=== PATIENT | female | born 2000 | race Caucasian/White ===

== ENCOUNTER 2018-02-21 13:23 | Emergency (ER) | payer MEDICAID ==
[2018-02-21 13:29] VITALS: BP 114/69; PULSE 74; RESP 18; TEMP 97.7; O2SAT 100
--- NOTE | 2018-02-21 13:46 | ED PDOC ---
Lower Extremity Pain/Injury Chief Complaint (Nursing): Lower Extremity Problem/Injury Chief Complaint (Provider): Right big toe ingrown toenail History Per: Patient History/Exam Limitations: no limitations Onset/Duration Of Symptoms: Days (x1 week) Current Symptoms Are (Timing): Still Present Additional Complaint(s): Angelica Sosa is a 18 year old female, with no significant past medical history, who presents to the emergency department complaining of an ingrown toenail to right big toe onset for x1 week. Patient states she made an appointment at the podiatry clinic but needs a referral and was advised to come to the ED. She denies any other medical complaints. PMD: None provided. Past Medical History Reviewed: Historical Data, Nursing Documentation, Vital Signs Vital Signs: Last Vital Signs Temp 97.7 F 02/21/18 13:26 Pulse 74 02/21/18 13:26 Resp 18 02/21/18 13:26 BP 114/69 02/21/18 13:26 Pulse Ox 100 02/21/18 13:26 - Medical History PMH: No Chronic Diseases - Surgical History Surgical History: No Surg Hx - Family History Family History: States: No Known Family Hx - Allergies Allergies/Adverse Reactions: Allergies Allergy/AdvReac Type Severity Reaction Status Date / Time No Known Allergies Allergy Verified 02/21/18 13:26 Review of Systems ROS Statement: Except As Marked, All Systems Reviewed And Found Negative Musculoskeletal: Positive for: Foot Pain (right big toe ingrown toenail) Physical Exam - Reviewed Nursing Documentation Reviewed: Yes Vital Signs Reviewed: Yes - Physical Exam Appears: Positive for: Well, Non-toxic, No Acute Distress Head Exam: Positive for: ATRAUMATIC, NORMOCEPHALIC Skin: Positive for: Normal Color, Warm, Dry Eye Exam: Positive for: Normal appearance Extremity: Positive for: Normal ROM (lower extremities), Other (right foot, right big toe lateral edge appears mildly ingrown to nailfold. No inflammation, drainage, discharge or infection.). Negative for: Swelling (right big toe) Neurologic/Psych: Positive for: Alert, Oriented - ECG O2 Sat by Pulse Oximetry: 100 (RA) Pulse Ox Interpretation: Normal Medical Decision Making Medical Decision Making: Initial Impression: Right big toe ingrown toenail. Initial Plan:Affected toenail edge removed at the nail fold without use of anestesia; pt tolerated procedure well and experienced not pain durign or atfter the procedure ~ Scribe Attestation: Documented by Hector Puckett, acting as a scribe for Sundar Cleary PA-C. Provider Scribe Attestation: All medical record entries made by the Scribe were at my direction and personally dictated by me. I have reviewed the chart and agree that the record accurately reflects my personal performance of the history, physical exam, medical decision making, and the department course for this patient. I have also personally directed, reviewed, and agree with the discharge instructions and disposition. Disposition - Clinical Impression Clinical Impression: Ingrown nail of great toe of right foot Counseled Patient/Family Regarding: Studies Performed, Diagnosis, Need For Followup - Disposition Referrals: Villa Wagner DPM [Staff Provider] - Disposition Time: 13:55 Condition: GOOD Instructions: Ingrown Toenail, Ingrown Toenail Removal, Ingrown Toenail (DC) Forms: [employer] ([place])
== END 2018-02-21 14:40 | disposition home or self-care (01) ==
LOC: H.ER 13:23
DX: L60.0 Ingrowing nail (principal)